=== PATIENT | male | born 1955 | race Caucasian/White ===

== ENCOUNTER 2016-06-04 15:36 | Inpatient (IN) | payer OTHER ==
[2016-06-04 16:21] LABS: % IMMATURE GRANULYOCYTES 0.4 % (0.0-1.1); ABSOLUTE IMMATURE GRANULOCYTES 0.06 10^3/uL (0.00-0.10); ADD DIFF? NO; ADD MORPH? NO; ADD SCAN? NO; ATYPICAL LYMPHOCYTE FLAG 0 (0-99); FRAGMENT RBC FLAG 0 (0-99); HEMATOCRIT 46.4 % (40.0-51.0); LEFT SHIFT FLG 0 (0-99); LIPEMIA HEMOLYSIS FLAG 90 (0-99); MEAN CELL HEMOGLOBIN 29.4 pg (27.9-34.1); MEAN CELL HEMOGLOBIN CONCENTR. 34.5 g/dL (32.4-36.7); MEAN CELL VOLUME 85.1 fL (81.5-99.8); MEAN PLATELET VOLUME 9.7 fL (8.7-11.7); PLATELET CLUMPS FLAG 10 (0-99); PLATELET COUNT 240 10^3/uL (150-400); RED BLOOD CELL COUNT 5.45 10^6/uL (4.40-6.38); RED CELL DISTRIBUTION WIDTH 12.4 % (11.5-15.2)
[2016-06-04 16:41] LABS: ALANINE AMINOTRANSFERASE 37 IU/L (21-72); ALKALINE PHOSPHATASE 86 IU/L (38-126); ANION GAP 14 mEq/L (8-16); ASPARTATE AMINOTRANSFERASE 22 IU/L (17-59); BILIRUBIN,TOTAL 1.8 mg/dL (0.1-1.4); C-REACTIVE PROTEIN 44.3 mg/L (<10.0); CARBON DIOXIDE 26 mEq/l (22-31); CHLORIDE 102 mEq/L (97-110); CREATININE 0.9 mg/dL (0.7-1.3); GLOMERULAR FILTRATION RATE > 60; GLUCOSE 83 mg/dL (70-100); POTASSIUM 4.2 mEq/L (3.5-5.2); SODIUM 142 mEq/L (134-144); TOTAL PROTEIN 6.8 g/dL (6.3-8.2)
[2016-06-04 16:45] LABS: SEDIMENTATION RATE 10 MM/HR (0-20)
--- NOTE | 2016-06-04 16:53 | GHP ---
[f rep st] PREOP HISTORY AND PHYSICAL Corrected report HISTORY: Carmelo is a pleasant 60-year-old gentleman who now is 4 weeks status post a revision right L3-4 microdiskectomy and an L2-3 partial laminectomy for stenosis. This was done at an outside facility. Patient notified my office today that he has had wound drainage ever since his mio were removed 2 weeks ago and a possible infection with systemic symptomatology, including fevers, chills, malaise, and increasing wound drainage as well as increasing wound pain. He was instructed to be n.p.o. and then came into my office for evaluation. Patient denies any loss of bowel or bladder control. His preoperative right leg pain has resolved 100% since the recent surgery. SOCIAL HISTORY: Negative for tobacco and positive for social use of alcohol. FAMILY HISTORY: Negative. PAST MEDICAL HISTORY: Bladder cancer, headaches, and depression. PAST SURGICAL HISTORY: The patient underwent a cervical anterior fusion with instrumentation by another surgeon in the past. He has also had a vasectomy and CyberKnife treatments for prostate cancer. Furthermore, 25 years ago he had a right L3-4 microdiskectomy, and this was preceded by cauda equina syndrome. ALLERGIES TO MEDICATIONS: Penicillin. MEDICATIONS: Prozac, Mirapex, verapamil. PHYSICAL EXAM: VITAL SIGNS: Temperature is 99. CARDIAC: Slight tachycardia. Otherwise, there is regular rhythm and no detectable murmur. LUNGS: Clear to auscultation. He has no wheezing or rhonchi. BACK: Examination of his lumbar wound shows that it is dehiscing, and there is obvious subcutaneous purulence that is easily expressed from the wound. His wound is very tender and erythematous. EXTREMITIES: Strength of bilateral lower extremities is 5/5 throughout. His gait is normal and there is no footdrop. Light touch is intact. Straight leg raising is negative x2. IMPRESSION: 1. Four weeks status post revision right L3-4 microdiskectomy and L2-3 partial laminectomy. 2. Lumbar wound infection. 3. Twenty-five years status post right L3-4 microdiskectomy by another surgeon. PLAN: Carmelo will need to go to the operating room for an incision, irrigation, and debridement of the lumbar wound infection and exploration thereof. I explained to him what the postoperative course may look like, but explained also that he may need more than one trip to the operating room to contain the infection. Also, it should be mentioned that per my operative report from 1 month ago when the patient was positioned prone he had a vasovagal response to IV fentanyl, at which time the surgery was temporarily stopped due to severe bradycardia and severe hypotension. He ultimately hemodynamically stabilized and the surgery was completed. Potential risks, benefits, and possible complications of the upcoming surgery have been explained to the patient and his at length. He understands he will likely need a PICC line for postoperative IV antibiotics and at least a 3-4 day hospital course. The patient has been n.p.o. since 8 a.m. today. Copy requested to: CAL /[id number]/MODL Sanjay acc#, 06/05/16, melvin BATISTA
[2016-06-04] MEDS ORDERED: BUPIVACAINE 0.25% 30 ML SDV ONE (17:06)
[2016-06-04] MEDS ORDERED: BUPIVACAINE/EPI 0.25% 30 ML SDV ONE (17:06)
[2016-06-04] MEDS ORDERED: THROMBIN (RECOMBINANT) 20,000 UNIT VIAL TP ONE (17:06)
[2016-06-04] MEDS ORDERED: BACITRACIN 50,000 UNITS/10 ML SYR IRR ONE (17:07)
[2016-06-04] MEDS ORDERED: POLYMYXIN B SULFATE 500,000 UNIT/10 ML SYR IRR ONE (17:07)
[2016-06-04] MEDS ORDERED: MIDAZOLAM 2 MG/2 ML VIAL ONE (17:16)
[2016-06-04] MEDS ORDERED: ONDANSETRON 4 MG/2 ML VIAL ONE (17:23)
[2016-06-04] MEDS ORDERED: DEXAMETHASONE 4 MG/ML VIAL ONE (17:23)
[2016-06-04] MEDS ORDERED: ROCURONIUM 50 MG/5 ML VIAL ONE (17:24)
[2016-06-04] MEDS ORDERED: fentaNYL 100 MCG/2 ML INJ ONE (17:30)
[2016-06-04] MEDS ORDERED: PROPOFOL 200 MG/20 ML VIAL ONE (17:31)
[2016-06-04] MEDS ORDERED: BISACODYL 10 MG SUPP PR PRN (17:34)
[2016-06-04] MEDS ORDERED: DIAZEPAM 10 MG/2 ML SYR IVP PRN (17:34)
[2016-06-04] MEDS ORDERED: MAGNESIUM HYDROXIDE 30 ML UDCUP PO PRN (17:34)
[2016-06-04] MEDS ORDERED: diphenhydrAMINE 25 MG CAP PO PRN (17:34)
[2016-06-04] MEDS ORDERED: PROCHLORPERAZINE MALEATE 10 MG TAB PO PRN (17:34)
[2016-06-04] MEDS ORDERED: POLYETHYLENE GLYCOL 3350 17 GM PKT PO PRN (17:34)
[2016-06-04] MEDS ORDERED: HYDROmorphONE/DILAUDID 1 MG/ML SYR IVP PRN (17:34)
[2016-06-04] MEDS ORDERED: ONDANSETRON DISINTEGRATING 4 MG TAB PO PRN (17:34)
[2016-06-04] MEDS ORDERED: ONDANSETRON 4 MG/2 ML VIAL IVP PRN (17:34)
[2016-06-04] MEDS ORDERED: DIAZEPAM 5 MG TAB PO PRN (17:34)
[2016-06-04] MEDS ORDERED: HYDROCODONE/APAP 10/325 TAB PO PRN (17:34)
[2016-06-04] MEDS ORDERED: D5W 1/2 NS W/ 20 KCl/L 1,000 ML IV SCH (17:45)
[2016-06-04] MEDS ORDERED: VANCOMYCIN HCL/NORMAL SALINE 250 ML IV ONE (18:00)
[2016-06-04] MEDS ORDERED: REMIFENTANIL HCL 1 MG VIAL ONE (18:05)
[2016-06-04] MEDS ORDERED: PROPOFOL/EMULSION 500 MG/50 ML BOTTLE IV ONE (18:05)
[2016-06-04] MEDS ORDERED: KETOROLAC 30 MG/1 ML SDV ONE (18:51)
[2016-06-04] MEDS ORDERED: GLYCOPYRROLATE 0.2 MG/1 ML VIAL ONE (18:52)
[2016-06-04] MEDS ORDERED: NEOSTIGMINE METHYLSULFATE 5 MG/5 ML SYR ONE (18:52)
[2016-06-04] MEDS ORDERED: HYDROmorphONE/DILAUDID 2 MG/ML SYR ONE (19:12)
--- NOTE | 2016-06-04 19:16 | POSTOPPROG ---
Post Op Note Date of Operation: 06/04/16 Surgeon: Yue Vigil Rendering Equipment Tender: Sharri Del Valle SA Anesthesiologist: Sarahi Paredes Anesthesia: GET(General Endotracheal) Pre-op Diagnosis: post op lumbar wound infxn s/p L2-3 lami, & R L3-4 revision microdisc Post-op Diagnosis: same Indication: same Procedure: I and D lumbar wound infection Findings: superficial and deep lumbar wound infection Inf/Abcess present in the surg proc area at time of surgery?: Yes Depth: Deep Incisional (Fascial) EBL: 50 cc Complications: none. No changes in neuro monitoring. Drains: Vinicius Frost
[2016-06-04] MEDS: SENNOSIDES/DOCUSATE SODIUM TAB PO SCH (20:37)
[2016-06-05] MEDS: OXYCODONE/APAP 5/325 TAB PO PRN ×8 (05:54→23:10)
[2016-06-05] MEDS ORDERED: VANCOMYCIN 1.5 GM in D5W 250 ML IV SCH (06:00)
[2016-06-05] MEDS: SENNOSIDES/DOCUSATE SODIUM TAB PO SCH ×2 (08:51→20:20)
--- NOTE | 2016-06-05 10:24 | GOP ---
[f rep st] OPERATIVE REPORT DATE OF OPERATION: 06/04/2016 SURGEON: Yue Mcintosh MD DIRECTOR OF STUDENT LIFE: Indra Del Valle S.A. ANESTHESIA: Dr. Norberto Paredes, general endotracheal intubation. PREOPERATIVE DIAGNOSIS: 1. Four weeks status post revision, right L3-4 microdiskectomy and L2-3 partial laminectomy. 2. Postoperative lumbar wound infection. POSTOPERATIVE DIAGNOSIS: 1. Four weeks status post revision, right L3-4 microdiskectomy and L2-3 partial laminectomy. 2. Postoperative lumbar wound infection. PROCEDURE PERFORMED: Incision, drainage and debridement of lumbar wound infection, superficially and deep. FINDINGS: Purulence, mainly dorsal to the fascial layer, but also some and to a lesser degree, deep to the fascial layer. Stat Gram stain showed 1+ gram-positive cocci and polymorphonuclear white cell s. The patient did receive 1 g of vancomycin after cultures were obtained. ESTIMATED BLOOD LOSS: 50 cc. INDICATIONS: Carmelo is a pleasant 60-year-old gentleman who is 4 weeks status post a revision. right L 3-4 microdiskectomy, foraminotomy and L2-3 partial laminectomy. He called my office today stating he has had drainage from his wound for the past 2 weeks, and beginning to have systemic symptoms of chi lls, fevers and increasing incisional pain. He was kept n.p.o. and was seen immediately. His lumbar wound was clearly infected and therefore, it was indicated to bring him back to the operating room f or an incision, irrigation and debridement of the lumbar wound. DESCRIPTION OF PROCEDURE: After obtaining both written and verbal consent from the patient, he was b rought to the operating room, where he underwent general endotracheal intubation. A Levine catheter w as attempted to be placed by the circulating nurse, but was unable to pass it freely. Intraoperative neuromonitoring including somatosensory-evoked potentials, motor evoked potentials and EMGs were set up and performed. Baseline potentials were normal. After intubation, the patient was rolled to the prone position on the Ward table. All 4 extremities were padded well. The face and eyes were pa dded per the anesthesiologist. No antibiotics were given until after cultures were obtained. [facility] was prepped and draped in a normal sterile fashion. A time-out was performed with the ent giovani operating room team, confirming patient's name, date of , planned surgical procedure includi ng levels, allergies to medications. A 10 blade knife was used to create a midline longitudinal incision through the previous wound from L 2-L4 dorsally. There was immediately about 10-15 cc of purulence subcutaneously that was immediately cultured using both aerobic and anaerobic cultures and also obtained fungal cultures. There was no foul smell. These sutures were removed of the fascia, and there was approximately 10 cc of purulence below the fascia. The infection did seem to be more superficial in general though as the soft tissu es appeared more necrotic dorsal to the fascial layer. A self-retaining retractor was placed. Under loupe magnification, the entire wound was explored including but not limited to, down to the area of the L2-3 partial laminectomy site and the right L3-4 microdiskectomy site. There was no evidence of epidural abscess. Both superficial and deep cultures were obtained x2. Also, tissue from the deep lumbar wound was sent to microbiology for AFB. At this time, a 1 x 1 kasi was used to cover the dur a at the L2-3 level. Then, 3 L of normal saline mixed with bacitracin and polymyxin were used to irr igate and pulse lavage the entire wound thoroughly. Once again, a Iris was used to palpate along the epidural space at both levels, L2-3 and L3-4. No evidence of pockets of purulence were identifie d. Very minimal debridement needed to be done deep to the fascial layer, but moderate amount proxima l to the fascial layer. Hemostasis was obtained. A 10 flat MASOOD drain was placed deep to the fascial layer and sewn in with a 2-0 nylon. A #1 Vicryl was then used to close the deep fascial layer in an interrupted loose fashion. The subcutaneous tissues were closed with an 0 Vicryl and 2-0 nylon in a simple interrupted fashion. Sterile dressing was applied. The patient was rolled to the supine posi tion. He was extubated in the operating room and brought to the recovery room in satisfactory condit ion. COMPLICATIONS: None. There were no changes in somatosensory evoked potentials, EMGs or motor evoked potentials. POSTOPERATIVE PLAN: Close neurologic observation, close airway observation, PT, OT, pain control, In fectious Disease consultation, IV antibiotics, and probable PICC line. /[id number]/MODL
[2016-06-05] MEDS ORDERED: ALTEPLASE 2 MG VIAL IVP PRN (11:15)
--- NOTE | 2016-06-05 12:40 | GCON ---
[f rep st] CONSULTATION INFECTIOUS DISEASE CONSULTATION DATE OF CONSULTATION: 06/05/2016 REFERRING PHYSICIAN: Yue Mcintosh MD REASON FOR CONSULTATION: Deep wound infection. HISTORY OF PRESENT ILLNESS: This is a 60-year-old, healthy male who underwent an L3-L4 revision microdiskectomy and L2-L3 partial laminectomy for spinal stenosis on 05/08/2016 at a local surgery center. The patient was doing well postoperatively until the beginning of May following his stitch removal. He developed ongoing drainage from the wound, and subsequently around May 26 developed chills, myalgias and low-grade temperatures daily. On June 03 his wound was purplish in color with associated chills. The patient called Dr. Mcintosh's office for evaluation. Subsequently, he was assessed and patient was found to have a wound infection. Therefore he went back to the operating room for I and D on 06/04/2016, in which purulence dorsal to the fascial layer, but also deep to the fascia layer, was identified. STAT Gram stain showed gram-positive cocci. Multiple cultures were obtained and are currently pending. The patient reports feeling an improved sense of joint achiness postoperatively today. PAST MEDICAL/SURGICAL HISTORY: Three episodes of strep throat, but no antibiotics for years. Prostate cancer status post CyberKnife 1 year ago. Lymphadenectomy L3-L4 20 years ago with repeat surgery on 05/08/2016. L3-L4 microdiskectomy redo and partial laminectomy for stenosis at L2-L3 that was new. The patient reports getting perioperative Cipro. ALLERGIES: Penicillin. Patient does not know his reaction. Parents told him that he had a reaction. MEDICATIONS: The patient received 1 g of vancomycin immediately postoperatively and 1.5 g this morning at 6 a.m. He is also on Kountze, Valium, Benadryl, milk of magnesia, Zofran, MiraLAX and Senokot, but does not take any scheduled medicines as an outpatient. FAMILY HISTORY: Maternal grandfather had a blood clot. His maternal grandmother had skin cancer. His father in a car accident. His mother is healthy in her 90s. SOCIAL HISTORY: The patient drinks alcohol 2-3 times weekly. No tobacco. He is . They live in [place]. 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 Last international travel was a year ago to [place] and [place] on a cruise. He also plays in a band. He and his have pet horses. REVIEW OF SYSTEMS: A complete 10-point review of systems was performed and is negative except as mentioned in the HPI. Specifically, the patient denies rash and diarrhea. PHYSICAL EXAM: VITAL SIGNS: The patient has been afebrile throughout his hospital course. His current temperature is 36.8, blood pressure 104/68, respiratory rate 18, saturation 94% on room air and heart rate is 67. GENERAL: This is a very healthy-appearing male in no acute distress. HEENT: Pupils are reactive bilaterally. Oropharynx good dentition. Dry mucous membranes. NECK: Supple. No lymphadenopathy. CARDIOVASCULAR: Regular rate and rhythm. No murmurs. CHEST: Clear to auscultation bilaterally. ABDOMEN: Soft, nontender. Bowel sounds are present. BACK: Surgical dressings were in place with some obvious blood saturation on the wound. He had a MASOOD drain that had just bloody drainage present and no purulence. EXTREMITIES: No clubbing, cyanosis, or edema. No joint swelling. SKIN: No rash. NEUROLOGIC: He is alert and oriented x4 with intact strength in all 4 extremities. LABORATORY: White count 14.2, hematocrit 46, platelets of 240, 83% neutrophils. ESR was 10. CRP 44, creatinine 0.9. AST 22, ALT 37, alkaline phosphatase 86. ASSESSMENT AND PLAN: This is a 60-year-old, healthy male with recent spinal surgery. Now with postop deep wound infection and is noted to have some purulence below the fascia in the OR report. Would recommend IV antibiotics potentially up to 4 weeks due to involvement to the deep fascia layer. RECOMMENDATIONS: 1. Would continue vancomycin while await susceptibilities. Strongly suspect Staphylococcus based on Gram stain appearance, but also could consider Streptococcus. 2. We will adjust antibiotics based on antibiotic susceptibilities. 3. Place PICC line. Risks and benefits of the PICC line were discussed with patient at bedside. 4. Discussed risks and benefits of IV antibiotic therapy including weekly monitoring and home IV therapy. TIME SPENT: 75 minutes, greater than 50% time spent with education and counseling regarding treatment of his deep fascial infection, IV antibiotic therapy, the risks and benefits of PICC line, etc. We will continue to follow daily. /[id number]/MODL MTDD
--- NOTE | 2016-06-05 16:17 | IR ---
Imaging-Guided Peripherally Inserted Central Catheter History: Center line access for antibiotics. Central line access for multiple medications. Prophylactic Antibiotic: Cefazolin was not ordered and administered for antimicrobial prophylaxis be cause it was not medically necessary for this procedure. VTE Prophylaxis: There is not an order for VTE prophylaxis to be given within 24 hours after procedu re end time because it was not medically necessary for this procedure. Crosscutting Measure: Patient's current list of medications including all known prescriptions, over- the-counters, herbals, and vitamin/mineral/dietary supplements are reviewed. Medications' name, dosa ge, frequency, and route of administration are confirmed. Technique: Following informed consent, the right arm was prepped and draped in sterile fashion. 1% Xy locaine was used for local anesthetic. All elements of maximal sterile barrier technique including cap, mask, sterile gown, sterile gloves, large sterile sheet, hand hygiene, and 2% chlorhexidine for cutaneous antisepsis, followed. Ultrasound evaluation of potential access site was performed. After successfully identifying a patent vessel, ultrasound guidance was used to puncture the vein. A permanent recording was created for the patient's record. Ultrasound transducer was placed in sterile sleeve and used for real-time imaging guidance over steri le gel to enter the basilic vein. 0.018 measuring wire was passed centrally under fluoroscopic contro l. A skin zach with scalpel blade was followed by removing the access needle. A 4 Colombian peel-away sh eath was followed by a 4 Colombian single-lumen central catheter, trimmed to 40 cm length. The tip of t he catheter was positioned centrally and the guidewire removed. A single fluoroscopic spot image was obtained in inspiration. The hub of the catheter was fixed to the skin using a sterile StatLock adhes paxton device, and a sterile dressing was applied. The catheter was irrigated. Findings: The tip of the central catheter terminates at the junction of the superior vena cava and th e right atrium. Fluoroscopy: 0.1 minutes, 2 images Impression: 4 Colombian single lumen peripherally inserted central catheter is ready to use.
--- NOTE | 2016-06-05 18:11 | SOAPPROG ---
SOAP Progress Note Assessment/Plan: Assessment: post op day 1, s/p I and D lumbar wound infection. Staph Aureus. Pt improving nicely. Received PICC today. Pain well controlled. Plan: Cont IV abx per I.D. Cont PT and OT. Pt may shower tomorrow with drain in place. 06/05/16 18:07 Subjective: Pt states he feels significantly better than yesterday. No leg/sciatic pain. No systemic symptoms. Objective: Vital Signs Temp Pulse Resp BP Pulse Ox 37.0 C 89 18 119/67 90 L 06/05/16 16:00 06/05/16 16:00 06/05/16 16:00 06/05/16 16:00 06/05/16 16:00 Microbiology 06/04/16 18:27 Gram Stain - Final Back - Eswab 06/04/16 18:27 Gram Stain - Final Back - Eswab 06/04/16 18:27 Gram Stain - Final Back - Tissue 06/04/16 18:34 Gram Stain - Final Back - Eswab 06/04/16 18:20 Gram Stain - Final Back - Eswab Laboratory Results 06/04/16 16:10 06/04/16 16:10 06/04/16 06/05/16 06/06/16 05:59 05:59 05:59 Intake Total 3050 Output Total 345 Balance 2705 BLE motor 5/5. Rahat's negative x2. Lumbar wound much improved. Mild serosanguinous drainage. No purulence seen. Drain functioning properly. ICD10 Worksheet Patient Problems: Problems Problem Status Diagnosed lumbar wound infection Acute
[2016-06-05] MEDS: VANCOMYCIN 1.5 GM in D5W 250 ML IV SCH (18:30)
[2016-06-06] MEDS: VANCOMYCIN 1.5 GM in D5W 250 ML IV SCH (05:28)
[2016-06-06] MEDS: OXYCODONE/APAP 5/325 TAB PO PRN ×4 (05:28→20:19)
[2016-06-06] MEDS: SENNOSIDES/DOCUSATE SODIUM TAB PO SCH ×2 (08:10→20:19)
--- NOTE | 2016-06-06 10:53 | PDIAF ---
- Diagnosis Diagnosis: MSSA Deep Wound Infection Code Status: Full Code - Medication Management Discharge Medications: Medications to Continue on Transfer Fluoxetine HCl 20 mg PO DAILY 06/05/16 [Last Taken 06/04/16] Multivitamins [Multivitamin (*)] 1 each PO DAILY 06/05/16 [Last Taken Unknown] Lizella-3 Fatty Acids [Fish Oil 1000 mg (*)] 1,000 mg PO DAILY 06/05/16 [Last Taken Unknown] Pramipexole Di-HCl [Mirapex] 0.5 mg PO HS 06/05/16 [Last Taken 06/04/16] Verapamil HCl [Verapamil Sr] 180 mg PO DAILY 06/05/16 [Last Taken 06/04/16] Termite Technician Antibiotics: Cefazolin 6 g IV continuous infusion Termite Technician Antibiotic Stop Date: 07/02/16 Discharge Medications: Refer to the Discharge Home Medication list for PRN reason. PICC Care - Routine: Yes - Orders Services needed: Home Care, Registered Nurse Home Care Face to Face: I certify that this patient was under my care and that I had the required [id number] encounter meeting the encounter requirements on the discharge day. My findings support the fact that the patient is homebound as defined in CMS Chapter 7 Medicare Benefits Manual 30.1.1, The condition of the patient is such that there exists a normal inability to leave home and consequently, leaving home would require a considerable and taxing effort. - Labs/Radiology CBC Date: 06/09/16 (Weekly, Thursday) CMP Date: 06/09/16 (Weekly, Thursday) CRP Date: 06/09/16 (Weekly, Thursday) - Follow Up Care Current Providers and Referrals: Patient,NotPresent [Primary Care Provider] - Yue Vigil MD [Medical Doctor] - Ruthann Parmar MD [Medical Doctor] - 06/17/16 11:30 am
--- NOTE | 2016-06-06 11:21 | PCMIDPN ---
Assessment/Plan: #MSSA deep wound infection s/p L2-3 lami, & R L3-4 revision microdisc with involvement under the fascia but no bone or epidural involvement. Wound looks great today! --plan to treat for 2-4 weeks with IV antibiotics, stop date 07/02/2016 --patient with an unknown allergy to penicillin that occurred in childhood, therefore it is safe to try cephalosporin. Will start on cefazolin 2 g IV Q 8 and monitor for reaction --PICC line placed yesterday --interagency he completed today --discharge from ID standpoint okay Medications Vancomycin 1.5 g IV Q 12, # 2 Microbiology All surgical cultures from 06/04/2016 positive for MSSA Subjective: Patient is feeling well without specific complaints. Tolerated PICC line placement yesterday without complication Objective: Vital Signs Temp Pulse Resp BP Pulse Ox 37.1 C 66 18 117/72 96 06/06/16 07:33 06/06/16 07:33 06/06/16 07:33 06/06/16 07:33 06/06/16 07:33 Microbiology 06/04/16 18:20 Gram Stain - Final Back - Eswab 06/04/16 18:27 Mycobacterial Smear (RILEY) - Final Back - Tissue 06/04/16 18:27 Gram Stain - Final Back - Eswab 06/04/16 18:27 Gram Stain - Final Back - Eswab 06/04/16 18:27 Gram Stain - Final Back - Tissue 06/04/16 18:34 Gram Stain - Final Back - Eswab Laboratory Results 06/04/16 16:10 06/04/16 16:10 06/05/16 06/06/16 06/07/16 05:59 05:59 05:59 Intake Total 3050 1490 Output Total 345 40 Balance 2705 1450 ESR 10 MM/HR (0-20) 06/04/16 16:10 C-Reactive Protein 44.3 mg/L (<10.0) H 06/04/16 16:10 - Physical Exam General Appearance: alert, no apparent distress EENT: No scleral icterus Respiratory: lungs clear Neck: supple Cardiac/Chest: regular rate, rhythm Extremities: No pedal edema Back: other (Incision without redness or purulent drainage. Some serosanguineous drainage saturated gauze. MASOOD in place with primarily blood in bulb) Skin: No rash Neuro/Psych: alert, normal mood/affect, oriented x 3 - Line/s RUE PICC Lines: No drainage, No erythema - Time Spent With Patient Time Spent with Patient: greater than 35 minutes (Reviewed risks and benefits of IV antibiotic therapy, change to cefazolin including risks of allergic reaction, plans for therapy) Time Spent with Patient: Greater than 35 minutes spent on this patients care, greater than 50% of time spent counseling, educating, and coordinating care regarding the above mentioned plan. ICD10 Worksheet Patient Problems: Problems Problem Status Diagnosed lumbar wound infection Acute
--- NOTE | 2016-06-06 13:01 | SOAPPROG ---
SOAP Progress Note Assessment/Plan: Assessment: post op day 1, s/p I and D lumbar wound infection. Staph Aureus. Pt improving nicely. Received PICC today. Pain well controlled. Plan: Cont IV abx per I.D. Cont PT and OT. Pt may shower tomorrow with drain in place. 06/05/16 18:07 06/06/16 12:58 post op day 2 s/p I and D lumbar wound. Cxs showing MSSA. On iv. abx per I.D. Picc line in place. Pain well controlled. Plan: d/c drain today. Will observe wound tomorrow. If it continues to look good, likely I will d/c pt tomorrow with home health care. Subjective: Pt feeling well. No leg pain. Incision pain well controlled. Objective: Vital Signs Temp Pulse Resp BP Pulse Ox 37.1 C 66 18 117/72 96 06/06/16 07:33 06/06/16 07:33 06/06/16 07:33 06/06/16 07:33 06/06/16 07:33 Microbiology 06/04/16 18:20 Gram Stain - Final Back - Eswab 06/04/16 18:27 Mycobacterial Smear (RILEY) - Final Back - Tissue 06/04/16 18:27 Gram Stain - Final Back - Eswab 06/04/16 18:27 Gram Stain - Final Back - Eswab 06/04/16 18:27 Gram Stain - Final Back - Tissue 06/04/16 18:34 Gram Stain - Final Back - Eswab Laboratory Results 06/04/16 16:10 06/04/16 16:10 06/05/16 06/06/16 06/07/16 05:59 05:59 05:59 Intake Total 3050 1490 Output Total 345 40 Balance 2705 1450 BLE motor 5/5. Rahat's negative x2. Wound looks good. Minimal erythema. Drain functioning well. ICD10 Worksheet Patient Problems: Problems Problem Status Diagnosed lumbar wound infection Acute
[2016-06-06] MEDS: ceFAZolin 2 GM/DEXTROSE 100 ML IV SCH ×2 (14:42→21:44)
[2016-06-06 23:44] VITALS: RESP 16
[2016-06-07] MEDS: OXYCODONE/APAP 5/325 TAB PO PRN ×4 (03:28→20:07)
[2016-06-07] MEDS: ceFAZolin 2 GM/DEXTROSE 100 ML IV SCH ×3 (06:03→21:57)
[2016-06-07] MEDS: SENNOSIDES/DOCUSATE SODIUM TAB PO SCH ×2 (07:45→20:07)
--- NOTE | 2016-06-07 12:05 | PCMIDPN ---
Assessment/Plan: #MSSA deep wound infection s/p L2-3 lami, & R L3-4 revision microdisc with involvement under the fascia but no bone or epidural involvement. Serous drainage from wound. low grade temp to 99 overnight. no rash, no diarrhea. WBC improved --DC per Dr. Vigil , but wound itself looks healthy although significant drainage Medications, ABX 3 cefazolin 2gm iv q8 Microbiology All surgical cultures from 06/04/2016 positive for MSSA Subjective: concerned about low grade temp last night no specific reaction to cefazolin no diarrhea Objective: Vital Signs Temp Pulse Resp BP Pulse Ox 37.0 C 80 16 122/74 H 95 06/07/16 07:55 06/07/16 07:55 06/07/16 07:55 06/07/16 07:55 06/07/16 07:55 Microbiology 06/04/16 18:27 Gram Stain - Final Back - Tissue 06/04/16 18:27 Gram Stain - Final Back - Eswab 06/04/16 18:27 Gram Stain - Final Back - Eswab 06/04/16 18:34 Gram Stain - Final Back - Eswab 06/04/16 18:20 Gram Stain - Final Back - Eswab Laboratory Results 06/04/16 16:10 06/04/16 16:10 06/06/16 06/07/16 06/08/16 05:59 05:59 05:59 Intake Total 1490 310 400 Output Total 40 Balance 1450 310 400 ESR 10 MM/HR (0-20) 06/04/16 16:10 C-Reactive Protein 44.3 mg/L (<10.0) H 06/04/16 16:10 - Physical Exam General Appearance: alert, no apparent distress Respiratory: No respiratory distress, No accessory muscle use Extremities: No pedal edema Back: other (incision without erythema. Dressing is saturated with serosang fluid, with some complete strike through) Skin: No rash Neuro/Psych: alert, normal mood/affect, oriented x 3 - Line/s RUE PICC Lines: No drainage, No erythema ICD10 Worksheet Patient Problems: Problems Problem Status Diagnosed lumbar wound infection Acute
--- NOTE | 2016-06-07 12:26 | SOAPPROG ---
SOAP Progress Note Assessment/Plan: Assessment: post op day 1, s/p I and D lumbar wound infection. Staph Aureus. Pt improving nicely. Received PICC today. Pain well controlled. Plan: Cont IV abx per I.D. Cont PT and OT. Pt may shower tomorrow with drain in place. 06/05/16 18:07 06/06/16 12:58 post op day 2 s/p I and D lumbar wound. Cxs showing MSSA. On iv. abx per I.D. Picc line in place. Pain well controlled. Plan: d/c drain today. Will observe wound tomorrow. If it continues to look good, likely I will d/c pt tomorrow with home health care. 06/07/16 12:23 post op day 3 s/p I and D lumbar wound infection with MSSA. On Ancef iv. Overall nicely improved. However, moderate drainage from wound now that drain has been removed. Will keep pt in hospital until drainage decreases substantially. Subjective: Pt feels well. Incisional pain well controlled. No leg pain. No systemic symptoms. Objective: Vital Signs Temp Pulse Resp BP Pulse Ox 37.0 C 80 16 122/74 H 95 06/07/16 07:55 06/07/16 07:55 06/07/16 07:55 06/07/16 07:55 06/07/16 07:55 Microbiology 06/04/16 18:27 Gram Stain - Final Back - Tissue 06/04/16 18:27 Gram Stain - Final Back - Eswab 06/04/16 18:27 Gram Stain - Final Back - Eswab 06/04/16 18:34 Gram Stain - Final Back - Eswab 06/04/16 18:20 Gram Stain - Final Back - Eswab Laboratory Results 06/04/16 16:10 06/04/16 16:10 06/06/16 06/07/16 06/08/16 05:59 05:59 05:59 Intake Total 1490 310 400 Output Total 40 Balance 1450 310 400 BLE motor 5/5. Rahat's negative x 2. NVI. Lumbar wound with moderate serosanguinous drainage and moderate swelling. No fluctuance. No erythema. ICD10 Worksheet Patient Problems: Problems Problem Status Diagnosed lumbar wound infection Acute
[2016-06-07 12:40] LABS: % IMMATURE GRANULYOCYTES 0.4 % (0.0-1.1); ABSOLUTE IMMATURE GRANULOCYTES 0.05 10^3/uL (0.00-0.10); ADD DIFF? NO; ADD MORPH? NO; ADD SCAN? NO; ATYPICAL LYMPHOCYTE FLAG 0 (0-99); FRAGMENT RBC FLAG 0 (0-99); HEMATOCRIT 37.8 % (40.0-51.0); HEMOGLOBIN 13.1 g/dL (13.7-17.5); LEFT SHIFT FLG 0 (0-99); LIPEMIA HEMOLYSIS FLAG 90 (0-99); MEAN CELL HEMOGLOBIN 30.3 pg (27.9-34.1); MEAN CELL HEMOGLOBIN CONCENTR. 34.7 g/dL (32.4-36.7); MEAN CELL VOLUME 87.3 fL (81.5-99.8); PLATELET CLUMPS FLAG 0 (0-99); PLATELET COUNT 246 10^3/uL (150-400); RED BLOOD CELL COUNT 4.33 10^6/uL (4.40-6.38); RED CELL DISTRIBUTION WIDTH 12.5 % (11.5-15.2)
[2016-06-07 12:59] LABS: ALANINE AMINOTRANSFERASE 36 IU/L (21-72); ALBUMIN 3.3 g/dL (3.5-5.0); ALKALINE PHOSPHATASE 79 IU/L (38-126); ANION GAP 9 mEq/L (8-16); ASPARTATE AMINOTRANSFERASE 19 IU/L (17-59); BILIRUBIN,TOTAL 0.7 mg/dL (0.1-1.4); CALCIUM 9.6 mg/dL (8.5-10.4); CARBON DIOXIDE 29 mEq/l (22-31); CHLORIDE 102 mEq/L (97-110); CREATININE 0.9 mg/dL (0.7-1.3); GLOMERULAR FILTRATION RATE > 60; GLUCOSE 84 mg/dL (70-100); POTASSIUM 4.4 mEq/L (3.5-5.2); SODIUM 140 mEq/L (134-144); TOTAL PROTEIN 5.8 g/dL (6.3-8.2)
[2016-06-08] MEDS: ACETAMINOPHEN 325 MG TAB PO PRN ×2 (00:04→08:46)
[2016-06-08] MEDS: ceFAZolin 2 GM/DEXTROSE 100 ML IV SCH ×2 (06:06→13:28)
[2016-06-08 08:26] VITALS: BP 128/76; PULSE 74; TEMP 98.3; O2SAT 98
[2016-06-08] MEDS: SENNOSIDES/DOCUSATE SODIUM TAB PO SCH (08:46)
[2016-06-08 11:13] LABS: % IMMATURE GRANULYOCYTES 0.3 % (0.0-1.1); ABSOLUTE IMMATURE GRANULOCYTES 0.03 10^3/uL (0.00-0.10); ADD DIFF? NO; ADD MORPH? NO; ADD SCAN? NO; ATYPICAL LYMPHOCYTE FLAG 10 (0-99); FRAGMENT RBC FLAG 0 (0-99); HEMATOCRIT 39.2 % (40.0-51.0); HEMOGLOBIN 13.6 g/dL (13.7-17.5); LEFT SHIFT FLG 0 (0-99); LIPEMIA HEMOLYSIS FLAG 90 (0-99); MEAN CELL HEMOGLOBIN 30.2 pg (27.9-34.1); MEAN CELL HEMOGLOBIN CONCENTR. 34.7 g/dL (32.4-36.7); MEAN CELL VOLUME 86.9 fL (81.5-99.8); MEAN PLATELET VOLUME 9.8 fL (8.7-11.7); PLATELET CLUMPS FLAG 0 (0-99); PLATELET COUNT 255 10^3/uL (150-400); RED BLOOD CELL COUNT 4.51 10^6/uL (4.40-6.38); RED CELL DISTRIBUTION WIDTH 12.4 % (11.5-15.2)
--- NOTE | 2016-06-08 13:57 | PCMIDPN ---
Assessment/Plan: #MSSA deep wound infection s/p L2-3 lami, & R L3-4 revision microdisc with involvement under the fascia but no bone or epidural involvement. Currently receiving IV antibiotics s/p I&D wound on 06/04/16. Multiple measures of improvement: WBC continues to improve. AF. Much less drainage today on dressing --DC per Dr. Vigil --outpatient antibiotics set up, no side effects noted, cefazolin 6gm CI, stop date 07/02/16 # H/o unknown PCN allergy in childhood but tolerating cephalosporins Medications, ABX 4 cefazolin 2gm iv q8 Microbiology All surgical cultures from 06/04/2016 positive for MSSA Subjective: no c/o trouble sleeping due to bed but no further episodes of chills, sweats had RIOS last night that resolved with APAP/caffeine Objective: Vital Signs Temp Pulse Resp BP Pulse Ox 36.8 C 74 16 128/76 H 98 06/08/16 08:00 06/08/16 08:00 06/08/16 08:00 06/08/16 08:00 06/08/16 08:00 Microbiology 06/04/16 18:27 Gram Stain - Final Back - Tissue 06/04/16 18:27 Gram Stain - Final Back - Eswab 06/04/16 18:27 Gram Stain - Final Back - Eswab 06/04/16 18:34 Gram Stain - Final Back - Eswab 06/04/16 18:20 Gram Stain - Final Back - Eswab Laboratory Results 06/08/16 10:50 06/07/16 12:30 06/07/16 06/08/16 06/09/16 05:59 05:59 05:59 Intake Total 310 700 Balance 310 700 ESR 10 MM/HR (0-20) 06/04/16 16:10 C-Reactive Protein 44.3 mg/L (<10.0) H 06/04/16 16:10 - Physical Exam General Appearance: alert, no apparent distress EENT: No scleral icterus Respiratory: No accessory muscle use Extremities: No pedal edema, No inflammation, No swelling Male Genitalia: No vines Back: other (incision without erythema, serosang drainage on gauze 50% ( significant improvement, yesterday was striking through dressing)) Skin: normal color, warm/dry, No rash Neuro/Psych: alert, normal mood/affect, oriented x 3 - Line/s RUE PICC Lines: No drainage, No erythema ICD10 Worksheet Patient Problems: Problems Problem Status Diagnosed lumbar wound infection Acute
--- NOTE | 2016-06-08 15:22 | SOAPPROG ---
SOAP Progress Note Assessment/Plan: Assessment: post op day 1, s/p I and D lumbar wound infection. Staph Aureus. Pt improving nicely. Received PICC today. Pain well controlled. Plan: Cont IV abx per I.D. Cont PT and OT. Pt may shower tomorrow with drain in place. 06/05/16 18:07 06/06/16 12:58 post op day 2 s/p I and D lumbar wound. Cxs showing MSSA. On iv. abx per I.D. Picc line in place. Pain well controlled. Plan: d/c drain today. Will observe wound tomorrow. If it continues to look good, likely I will d/c pt tomorrow with home health care. 06/07/16 12:23 post op day 3 s/p I and D lumbar wound infection with MSSA. On Ancef iv. Overall nicely improved. However, moderate drainage from wound now that drain has been removed. Will keep pt in hospital until drainage decreases substantially. 06/08/16 15:20 post op day4 s/p i and d lumbar wound infection. Pt feeling well and wound markedly improved. Ready for discharge with home health nursing and iv abx. Subjective: Pt states he feels well. No leg pain. Incision pain controlled on Tylenol Objective: Vital Signs Temp Pulse Resp BP Pulse Ox 36.8 C 74 16 128/76 H 98 06/08/16 08:00 06/08/16 08:00 06/08/16 08:00 06/08/16 08:00 06/08/16 08:00 Microbiology 06/04/16 18:27 Gram Stain - Final Back - Tissue 06/04/16 18:27 Gram Stain - Final Back - Eswab 06/04/16 18:27 Gram Stain - Final Back - Eswab 06/04/16 18:34 Gram Stain - Final Back - Eswab 06/04/16 18:20 Gram Stain - Final Back - Eswab Laboratory Results 06/08/16 10:50 06/07/16 12:30 06/07/16 06/08/16 06/09/16 05:59 05:59 05:59 Intake Total 310 700 Balance 310 700 WBC decreasing nicely. Lumbar wound with mild serous drainage. No erythema. Minimally tender. BLE motor 5/5. ICD10 Worksheet Patient Problems: Problems Problem Status Diagnosed lumbar wound infection Acute
--- NOTE | 2016-06-08 15:32 | PDIAF ---
- Diagnosis Diagnosis: MSSA Deep Wound Infection Code Status: Full Code - Medication Management Discharge Medications: Medications to Continue on Transfer Fluoxetine HCl 20 mg PO DAILY 06/05/16 [Last Taken 06/04/16] Verapamil HCl [Verapamil Sr] 180 mg PO DAILY 06/05/16 [Last Taken 06/04/16] Alteplase [Cathflo Activase 2 mg (*)] 2 mg IVP PRN PRN #0 vial 06/08/16 [Last Taken Unknown] ceFAZolin 2 GM/DEXTROSE [Ancef 2 gm (Premix)] 100 ml IV Q8HRS #0 bag 06/08/16 [ Last Taken Unknown] Alf Antibiotics: Cefazolin 6 g IV continuous infusion Alf Antibiotic Stop Date: 07/02/16 Discharge Medications: Refer to the Discharge Home Medication list for PRN reason. PICC Care - Routine: Yes - Orders Services needed: Home Care, Registered Nurse Home Care Face to Face: I certify that this patient was under my care and that I had the required [id number] encounter meeting the encounter requirements on the discharge day. My findings support the fact that the patient is homebound as defined in CMS Chapter 7 Medicare Benefits Manual 30.1.1, The condition of the patient is such that there exists a normal inability to leave home and consequently, leaving home would require a considerable and taxing effort. Diet Recommendation: no restrictions on diet Diet Texture: Regular Texture Diet Wound Care Instructions: Daily dry dressing change to lumbar wound after daily shower Activity/Weight Bearing Restrictions: No bending, lifting, twisting. Equipment: Pt to wear lumbar brace at all times except during showers. - Labs/Radiology CBC Date: 06/09/16 (Weekly, Thursday) CMP Date: 06/09/16 (Weekly, Thursday) CRP Date: 06/09/16 (Weekly, Thursday) - Follow Up Care Current Providers and Referrals: Ruthann Parmar MD [Medical Doctor] - 06/17/16 11:30 am Patient,NotPresent [Primary Care Provider] - Yue Vigil MD [Medical Doctor] -
--- NOTE | 2016-06-08 19:07 | GDS ---
[f rep st] DISCHARGE SUMMARY HOSPITAL COURSE: The patient is a pleasant 60-year-old gentleman who is 1 month status post a revisi on right L3-4 microdiscectomy and foraminotomy, as well as an L2-3 partial laminectomy by myself. He had been doing well after surgery. However, he called the office saying his wound was draining sign ificantly and he was having systemic symptoms of chills, fevers, and increasing incisional wound pain . He was seen immediately in the office and clearly there was an infection. He was brought back to the operating room on 06/04/2016. Findings at the time of surgery included purulence in the subcutan eous superficial layer and to a lesser degree deep to the fascia, but not within the bone and not in the epidural space. Numerous cultures were obtained that showed Staphylococcus aureus, which is meth icillin sensitive. He received vancomycin postoperatively and then infectious disease consultants sheron quiros changed him to Ancef 2 g q.8 hours. The patient received a PICC line from the radiology dep artment. His symptoms overall improved very markedly. His white count decreased. His appetite impr bessy. He had one evening of a low-grade temperature, but this resolved. The patient states that his preoperative leg pain has resolved completely. He was seen in PT and OT and became independent in ambulation and activities of daily living. The wound has improved daily and today there is only mild serous drainage. He is ready for discharge . The patient will call my office for followup appointment on June 18. He knows to call my office o r go to the emergency room immediately if he were to have any potential complications or worsening sy mptoms. Overall he has done very well and will be on IV antibiotics for 4 weeks. The patient has pr escriptions for Valium and Percocet left over from his 1st surgery and is quite frankly not taking ve ry much pain medication at this time. Overall, he has done well. He will follow up with me as senthil onofre on the of this month. /[id number]/MODL
--- NOTE | 2016-06-11 14:56 | PQFORM ---
PHYSICIAN QUERY FORM Needs Your Response This query form is being sent to you to assure this patient record is coded properly. Please respond to the question below: GLASS TINTER QUESTION: Dear Dr. Mcintosh, For coding purposes (there is a different code choice for excisional versus non excisional debridement)- please clarify if the debridement done on the May was: ___~ Excisional ___~ Non Excisional ___~ Other Thank You EFREN Morales HIM/Coding Dept [phone] INSTRUCTIONS FOR RESPONSE: Answer question by clicking on the "Edit Document" button. Move cursor to area below the stars. When complete, hit "Save." Click on the "Sign" button, then click "Sign" again. Type in your PIN and hit "Enter." excisional MTDD
== END 2016-06-08 16:49 | disposition home health service (06) | DRG 858 ==
LOC: F3E 15:36 → F3N 20:29
PROVIDERS: ADMIT Orthopaedic Surgery Orthopaedic Surgery of the Spine; ATTEND Orthopaedic Surgery Orthopaedic Surgery of the Spine
PROC: 0J970ZZ Drainage of Back Subcutaneous Tissue and Fascia, Open Approach (ICD-10-PCS; principal; 2016-06-04 17:00)
PROC: 0JB70ZZ Excision of Back Subcutaneous Tissue and Fascia, Open Approach (ICD-10-PCS; principal; 2016-06-04 17:00)
PROC: 02HV33Z Insertion of Infusion Device into Superior Vena Cava, Percutaneous Approach (ICD-10-PCS; 2016-06-05)
DX: T81.4XXA Infection following a procedure, initial encounter (principal); B95.61 Methicillin susceptible Staphylococcus aureus infection as the cause of diseases classified elsewhere; G25.81 Restless legs syndrome; G43.909 Migraine, unspecified, not intractable, without status migrainosus; F32.9 Major depressive disorder, single episode, unspecified
CPT/HCPCS: 97161-GP; 97165-GO; 97535-GO; C1751; J0690; J1100; J1170; J1885; J2250; J2405; J2704; J2710; J3010; J3370

== ENCOUNTER → 2017-12-15 | Outpatient (CLI) | payer OTHER | LOC: BMCIMAGING 12:36 | PROVIDERS: ATTEND Nurse Practitioner Adult Health | DX: M25.559 Pain in unspecified hip (principal); Q74.2 Other congenital malformations of lower limb(s), including pelvic girdle ==